=== PATIENT | male | born 1945 | race Caucasian/White ===

== ENCOUNTER 2023-10-13 18:56 | Inpatient (IN) | payer MEDICARE, BC ==
[~2023-10-13] VITALS: Ht 182.9 cm; Wt 84.3 kg
[2023-10-13] MEDS ORDERED: heparin 25,000 UNIT/250ml bag 250 ML IV PRN (19:25)
[2023-10-13 19:55] LABS: BASOPHILS # (AUTO) 0.1 X10'3 (0-0.2); BASOPHILS % (AUTO) 0.9 % (0-1); EOSINOPHILS # (AUTO) 0.2 X10'3 (0-0.9); EOSINOPHILS % (AUTO) 2.3 % (0-6); HEMATOCRIT 36.2 % (42.0-52.0); HEMOGLOBIN 12.3 g/dl (14.0-17.9); LYMPHOCYTES # (AUTO) 1.6 X10'3 (1.1-4.8); LYMPHOCYTES % (AUTO) 20.3 % (21-51); MEAN CORPUSCULAR HEMOGLOBIN 30.6 PG (27.0-31.0); MEAN PLATELET VOLUME 7.7 FL (7.4-10.4); MONOCYTES # (AUTO) 0.5 X10'3 (0-0.9); NEUTROPHILS # (AUTO) 5.4 X10'3 (1.8-7.7); NEUTROPHILS % (AUTO) 70.5 % (42-75); PLATELET COUNT 302 X10'3 (140-440); RED BLOOD COUNT 4.02 X10'6 (4.70-6.10); RED CELL DISTRIBUTION WIDTH 14.4 % (11.5-14.5); WHITE BLOOD COUNT 7.7 X10'3 (4.5-11.0)
[2023-10-13 20:06] LABS: APTT 35 SECONDS (22-32); INR 1.1 INR; PROTHROMBIN TIME 11.6 SECONDS (9.0-12.0)
[2023-10-13] MEDS ORDERED: morphine 2 MG/ML inj. syringe IV PRN ×2 (20:15)
[2023-10-13] MEDS ORDERED: magnesium hydroxide 30ml (MOM) UD suspension PO PRN (20:15)
[2023-10-13] MEDS ORDERED: mag hydrox/Alum hydrox/simeth 30ml oral suspension PO PRN (20:15)
[2023-10-13] MEDS ORDERED: ondansetron/PF 4mg/2ml inj IV PRN (20:15)
[2023-10-13] MEDS ORDERED: potassium Cl 20 mEq SR tablet PO PRN (20:15)
[2023-10-13] MEDS ORDERED: potassium Cl 40MEQ/1/2NS 520ml 520 ML IV PRN (20:15)
[2023-10-13] MEDS ORDERED: magnesium 4gm in 100ml NS 100 ML IV PRN (20:15)
[2023-10-13] MEDS ORDERED: magnesium Cl slow-release 64mg tablet PO PRN (20:15)
[2023-10-13] MEDS ORDERED: acetaminophen 325mg tablet PO PRN (20:15)
[2023-10-13] MEDS ORDERED: magnesium 2GM in 50ml NS 50 ML IV PRN (20:15)
[2023-10-13] MEDS: heparin 25,000 UNIT/250ml bag 250 ML IV PRN (20:23)
[2023-10-13] MEDS: MESSAGE TO NURSING IV ONE (20:24)
[2023-10-13] MEDS ORDERED: nitroGLYCERIN 0.4mg SUBLingual tab SL PRN (20:25)
[2023-10-13] MEDS ORDERED: albuterol 2.5 MG/3 ML nebule NEB PRN (20:40)
[2023-10-13 21:57] VITALS: BP 121/64; PULSE 62; RESP 13; O2SAT 98
[2023-10-13] MEDS ORDERED: TEMA15CA PO (22:47)
[2023-10-13] MEDS ORDERED: SACU1TAB4 PO (22:47)
[2023-10-13] MEDS ORDERED: FURO40TA4 PO (22:47)
[2023-10-13] MEDS ORDERED: CITA20TA28 (22:47)
[2023-10-13] MEDS ORDERED: POTA-366 PO (22:47)
[2023-10-13] MEDS ORDERED: LAN0.125T (22:47)
[2023-10-13] MEDS ORDERED: ATOR40TA72 PO (22:47)
[2023-10-13] MEDS ORDERED: BUPR-564 PO (22:47)
[2023-10-13] MEDS ORDERED: ALBUTEROL (22:47)
[2023-10-13] MEDS ORDERED: CARV25TA56 PO (22:47)
[2023-10-14] VITALS (15 sets, daily range): BP systolic 90–127; BP diastolic 59–68; PULSE 60–73; RESP 11–18; TEMP 97.6–99.5; O2SAT 91–98
[2023-10-14 02:42] LABS: BASOPHILS # (AUTO) 0.1 X10'3 (0-0.2); BASOPHILS % (AUTO) 0.8 % (0-1); EOSINOPHILS # (AUTO) 0.2 X10'3 (0-0.9); EOSINOPHILS % (AUTO) 2.3 % (0-6); HEMATOCRIT 36.4 % (42.0-52.0); HEMOGLOBIN 12.3 g/dl (14.0-17.9); LYMPHOCYTES # (AUTO) 1.1 X10'3 (1.1-4.8); LYMPHOCYTES % (AUTO) 12.7 % (21-51); MEAN CORPUSCULAR HEMOGLOBIN 30.4 PG (27.0-31.0); MEAN CORPUSCULAR HGB CONC 33.7 g/dL (33.0-36.5); MEAN CORPUSCULAR VOLUME 90.1 FL (78-98); MEAN PLATELET VOLUME 7.5 FL (7.4-10.4); MONOCYTES # (AUTO) 0.5 X10'3 (0-0.9); MONOCYTES % (AUTO) 5.6 % (2-12); NEUTROPHILS # (AUTO) 6.9 X10'3 (1.8-7.7); NEUTROPHILS % (AUTO) 78.6 % (42-75); PLATELET COUNT 290 X10'3 (140-440); RED BLOOD COUNT 4.04 X10'6 (4.70-6.10); RED CELL DISTRIBUTION WIDTH 14.5 % (11.5-14.5); WHITE BLOOD COUNT 8.8 X10'3 (4.5-11.0)
[2023-10-14 03:07] LABS: ANION GAP 9 (8-16); BLOOD UREA NITROGEN 9 MG/DL (7-18); BUN/CREATININE RATIO 8.3 (10.0-20.0); CALCIUM 8.7 MG/DL (8.5-10.1); CHLORIDE 95 MMOL/L (99-107); CHOLESTEROL 118 MG/DL (0-200); CREATININE 1.08 MG/DL (0.60-1.10); GLUCOSE 342 MG/DL (70-104); LDL CHOLESTEROL 65 MG/DL (50-100); SODIUM 130 MMOL/L (135-145); TOTAL CARBON DIOXIDE 26.1 MMOL/L (24-32); TRIGLYCERIDES 180 MG/DL (20-135); eCRCL 61 ML/MIN; eGFR 66 ML/MIN
[2023-10-14 03:09] LABS: CHOL/HDL RATIO 3.4 (0.00-4.99); HDL CHOLESTEROL 35 MG/DL (35-60)
[2023-10-14] MEDS: heparin 10,000 units/1 ML INJ IV PRN (03:09)
[2023-10-14] MEDS: MESSAGE TO NURSING IV ONE ×2 (03:11→11:50)
[2023-10-14] MEDS: K and/or MAG REPLACEMENT MC SCH (07:18)
[2023-10-14] MEDS ORDERED: carvedilol 6.25mg tablet PO SCH (08:00)
[2023-10-14] MEDS: aspirin 81mg tab.chew PO SCH (08:14)
[2023-10-14] MEDS: carVEDilol 12.5mg tablet PO SCH (08:15)
[2023-10-14] MEDS: atorvastatin 20mg tablet PO SCH (08:15)
[2023-10-14] MEDS ORDERED: DEXTROSE 15 GM of carb/4 tabs (each vial/BOTTLE has 4 tablets) PO PRN ×2 (08:20)
[2023-10-14] MEDS ORDERED: dextrose 50%-water 50ml dispensing syringe IV PRN ×2 (08:20)
[2023-10-14] MEDS ORDERED: glucagon, human recombinant 1mg kit SUBCUT PRN (08:20)
[2023-10-14] MEDS: INSULIN LISPRO 100 UNIT/ML INSULN.PEN MULTI-DOSE SQ SCH ×2 (09:00→14:43)
[2023-10-14] MEDS ORDERED: verapamil 2.5 mg/ml inj IV ONE (12:37)
[2023-10-14] MEDS ORDERED: fentaNYL/PF 50MCG/1 ML 2ML syringe ONE (12:38)
[2023-10-14] MEDS ORDERED: iohexol 350MG/ML 100ml bottle IV ONE (12:38)
[2023-10-14] MEDS ORDERED: heparin 1,000unit/ml 10ml vial 10 ML ONE (12:38)
[2023-10-14] MEDS ORDERED: midazolam 1 mg/ML 2ml injection ONE (12:38)
[2023-10-14] MEDS ORDERED: LIDOcaine 1% (10mg/ml) 2ml vial ONE (12:39)
[2023-10-14] MEDS ORDERED: nitroGLYCERIN 500mcg/5mL D5W 5 ML IV ONE ×2 (12:39→13:52)
[2023-10-14] MEDS ORDERED: aspirin 325mg tablet ONE (13:31)
[2023-10-14] MEDS ORDERED: ticagrelor 90mg tablet ONE (13:31)
[2023-10-14] MEDS ORDERED: iohexol 350 MG/ML 50ML vial IV ONE ×2 (13:38→13:50)
[2023-10-14] MEDS ORDERED: HYDROcodone/acetaminophen 5mg/325mg tablet PO PRN (14:50)
[2023-10-14] MEDS ORDERED: HYDROcodone/acetaminophen 10/325mg tab PO PRN (14:50)
[2023-10-14] MEDS: ticagrelor 90mg tablet PO SCH (19:12)
[2023-10-14] MEDS: furosemide 20 MG/2 ML vial IV SCH (19:15)
[2023-10-14] MEDS: insulin glargine (Lantus) pen - multi-dose SQ SCH (22:24)
[2023-10-14] MEDS: temazepam 15mg capsule PO PRN (22:57)
[2023-10-15 02:00] VITALS: BP 169/95; PULSE 127; RESP 18; TEMP 98.2; O2SAT 95
[2023-10-15 02:01] VITALS: BP 106/54; PULSE 63; RESP 18; TEMP 98.3; O2SAT 96
[2023-10-15 06:00] VITALS: BP 107/55; PULSE 57; RESP 15; TEMP 97.6; O2SAT 96
[2023-10-15 07:07] LABS: BASOPHILS % (AUTO) 0.6 % (0-1); EOSINOPHILS # (AUTO) 0.1 X10'3 (0-0.9); EOSINOPHILS % (AUTO) 1.6 % (0-6); HEMATOCRIT 35.4 % (42.0-52.0); HEMOGLOBIN 11.9 g/dl (14.0-17.9); LYMPHOCYTES # (AUTO) 1.2 X10'3 (1.1-4.8); LYMPHOCYTES % (AUTO) 16.2 % (21-51); MEAN CORPUSCULAR HEMOGLOBIN 30.3 PG (27.0-31.0); MEAN CORPUSCULAR HGB CONC 33.5 g/dL (33.0-36.5); MEAN CORPUSCULAR VOLUME 90.3 FL (78-98); MEAN PLATELET VOLUME 7.6 FL (7.4-10.4); MONOCYTES # (AUTO) 0.7 X10'3 (0-0.9); MONOCYTES % (AUTO) 8.8 % (2-12); NEUTROPHILS # (AUTO) 5.6 X10'3 (1.8-7.7); NEUTROPHILS % (AUTO) 72.8 % (42-75); PLATELET COUNT 284 X10'3 (140-440); RED BLOOD COUNT 3.92 X10'6 (4.70-6.10); RED CELL DISTRIBUTION WIDTH 14.4 % (11.5-14.5); WHITE BLOOD COUNT 7.7 X10'3 (4.5-11.0)
[2023-10-15 07:39] LABS: ALBUMIN 2.7 G/DL (3.4-5.0); ANION GAP 6 (8-16); BLOOD UREA NITROGEN 8 MG/DL (7-18); BUN/CREATININE RATIO 7.7 (10.0-20.0); CHLORIDE 102 MMOL/L (99-107); CHOLESTEROL 110 MG/DL (0-200); CREATININE 1.04 MG/DL (0.60-1.10); GLUCOSE 118 MG/DL (70-104); HDL CHOLESTEROL 37 MG/DL (35-60); LDL CHOLESTEROL 63 MG/DL (50-100); POTASSIUM 3.4 MMOL/L (3.5-5.1); SODIUM 138 MMOL/L (135-145); TOTAL CARBON DIOXIDE 30.3 MMOL/L (24-32); TRIGLYCERIDES 77 MG/DL (20-135); eCRCL 63 ML/MIN; eGFR 69 ML/MIN
[2023-10-15 07:44] LABS: CALCIUM 8.4 MG/DL (8.5-10.1)
[2023-10-15 08:00] VITALS: RESP 17; O2SAT 97
[2023-10-15 09:12] VITALS: PULSE 64; RESP 17; O2SAT 94
[2023-10-15] MEDS: potassium Cl 20 mEq SR tablet PO PRN (09:44)
[2023-10-15] MEDS ORDERED: [UNRECOGNIZED DRUG - CODE] SQ (10:36)
[2023-10-15] MEDS ORDERED: ASPI81TA53 PO (10:36)
[2023-10-15] MEDS ORDERED: EMPA10TA PO (10:36)
[2023-10-15] MEDS ORDERED: METF-1203 PO (10:36)
[2023-10-15] MEDS ORDERED: TICA90TA PO (10:36)
[2023-10-15] MEDS ORDERED: NITR0.4T51 SL (10:36)
[2023-10-15 11:00] VITALS: BP 96/57; PULSE 60; RESP 17; TEMP 98.1; O2SAT 94
[2023-10-15] MEDS ORDERED: INSU100I31 SQ (17:04)
== END 2023-10-15 14:28 | disposition home or self-care (01) | DRG 321 ==
LOC: ER 18:57 → ED HOLD 20:22 → PCU 3S 21:46
PROVIDERS: ADMIT Internal Medicine Critical Care Medicine; ATTEND Family Medicine
PROC: 4A023N7 Measurement of Cardiac Sampling and Pressure, Left Heart, Percutaneous Approach (ICD-10-PCS; principal; 2023-10-14)
PROC: 027035Z Dilation of Coronary Artery, One Artery with Two Drug-eluting Intraluminal Devices, Percutaneous Approach (ICD-10-PCS; 2023-10-14)
PROC: B2151ZZ Fluoroscopy of Left Heart using Low Osmolar Contrast (ICD-10-PCS; 2023-10-14)
PROC: B2111ZZ Fluoroscopy of Multiple Coronary Arteries using Low Osmolar Contrast (ICD-10-PCS; 2023-10-14)
DX: I21.4 Non-ST elevation (NSTEMI) myocardial infarction (principal); J96.21 Acute and chronic respiratory failure with hypoxia; I50.22 Chronic systolic (congestive) heart failure; E87.1 Hypo-osmolality and hyponatremia; I11.0 Hypertensive heart disease with heart failure; J44.9 Chronic obstructive pulmonary disease, unspecified; I25.110 Atherosclerotic heart disease of native coronary artery with unstable angina pectoris; E11.65 Type 2 diabetes mellitus with hyperglycemia; N40.0 Benign prostatic hyperplasia without lower urinary tract symptoms; Z79.82 Long term (current) use of aspirin; Z79.84 Long term (current) use of oral hypoglycemic drugs
CPT/HCPCS: 93306; 93458; 99285; C9600; 36415; 71045; 80048; 80061; 80162; 82948; 83036; 84484; 85025; 85610; 85730; 87081; 93005; 94760; 99152; 99153; A4615; A6258; C1725; C1751; C1758; C1769; C1874; C1894; G0378; J1644; J1815; J1940; J2250; J3010; J3490; J7030; Q9967